=== PATIENT | female | born 1990 | race American Indian/Alaskan Native ===

== ENCOUNTER 2019-03-13 13:26 | Emergency (ER) | payer OTHER ==
[2019-03-13 13:38] VITALS: BP 154/98
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
--- NOTE | 2019-03-13 14:09 | XRay Report ---
RIGHT RIBS, 3 VIEWS: History: Right rib pain. Routine views of the rib cage demonstrate normal mineralization with no significant contour abnormalities, fractures or destructive lesions. PA view of the chest demonstrates no underlying cardiopulmonary abnormalities, fluid or pneumothorax. Moderate dextro curvature to the thoracic spine is noted. IMPRESSION: Unremarkable right rib series. Scoliosis.
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
[2019-03-13] MEDS ORDERED: FIORICET PO ONE (14:40)
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
== END 2019-03-13 15:42 | disposition home or self-care (01) ==
LOC: ED 13:26
DX: S20.311A Abrasion of right front wall of thorax, initial encounter (principal); F17.200 Nicotine dependence, unspecified, uncomplicated; M79.10 Myalgia, unspecified site; Y04.2XXA Assault by strike against or bumped into by another person, initial encounter; Y93.39 Activity, other involving climbing, rappelling and jumping off; Y92.89 Other specified places as the place of occurrence of the external cause; Y99.8 Other external cause status
CPT/HCPCS: 70450; 99284